=== PATIENT | female | born 1975 | race Hispanic/Latino ===

== ENCOUNTER → 2018-06-16 | Day surgery (SDC) | payer BC ==
[~2018-06-16] MED LIST: FENTANYL CITRATE/PF 100MCG/2 ML INJ ONE; HUMALOG MI100 UNIT/2 SQ; JARDIANCE PO; JUNEL FE PO; LIDOCAINE HCL 2% LOCAL INJ 5 ML SDV VIAL INJ ONE; METFORMIN HCL500 M2 PO; MIDAZOLAM HCL 2 MG/2 ML VIAL ONE; PROPOFOL IV EMULSION 10 MG/ML 50 ML VIAL ONE; SYNTHROID125 MCG PO; TRULICITY SQ
--- OUTSIDE RECORDS SUMMARY | 2018-06-16 08:08 | XMS REPORT | Summary of Care ---
Author Author Julianna Canchola Organization Unknown Address [facility] Phone Unavailable Care Team Providers Care Leather Patcher Name Role Phone SushantArnold booneina Unavailable Unavailable JUN Montenegro, RONNIE Unavailable Unavailable ARZATE N.P., IVONNE Unavailable Unavailable VALENTIN ESPINOZA [facility], KAE CARDENAS Unavailable Unavailable VALENTIN [place], KAE Unavailable Unavailable MADELIN FLAVOR TANK TENDER [facility], GISEL Navarrete Unavailable Unavailable EMANUEL ESPINOZA, LISANDRA BENSON Unavailable Unavailable Unavailable Unavailable Functional Status Name Dates Details Functional status health issues are not documented Status: Name Dates Details Cognitive status health issues are not documented Status: Problems Name Dates Details Nonspecific finding on examination of urine (791.9, R82.90) Status: Active Noncompliance with treatment (V15.81, Z91.19) Status: Active De Quervain's tenosynovitis (727.04, M65.4) Status: Active Pain in both lower extremities (729.5, M79.604) Status: Active Varicose veins of leg with pain, 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, I83.813) Status: Active Bilateral acute otitis media (382.9, H66.93) Status: Active Acute frontal sinusitis, recurrence not specified (461.1, J01.10) Status: Active Bilateral serous otitis media, unspecified chronicity (381.4, H65.93) Status: Active Elevated blood-pressure reading, without diagnosis of hypertension (796.2, R03.0) Status: Active Mixed hyperlipidemia (272.2, E78.2) Status: Active Breast cancer screening (V76.10, Z12.31) Status: Active Well woman exam with routine gynecological exam (V72.31, Z01.419) Status: Active Dyspepsia (536.8, R10.13) Status: Active Type 2 diabetes mellitus (250.00, E11.9) Status: Active Hypothyroidism (244.9, E03.9) Status: Active Fatty liver (571.8, K76.0) Status: Active Seasonal allergic rhinitis due to pollen (477.0, J30.1) Status: Active Other specified hearing loss, left ear (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 Quantity: 90 RONNIE BARAHONA M.D. Active One Touch Ultra Test Strips Check BG 3x a day * Quantity: 100 Refills: 11 RONNIE BARAHONA M.D. * Start : 08-Mar-2014 Active OneTouch Delica Lancets Fine Check BG 3x a day * Quantity: 100 Refills: 4 RONNIE BARAHONA M.D. * Start : 08-Mar-2014 Active Pen [place] 3" 31G X 5 MM 4 a day * Quantity: 200 Refills: 10 RONNIE BARAHONA M.D. * Start : 08-Mar-2014 Active Lantus SoloStar 100 UNIT/ML Subcutaneous Solution Pen-injector 31 units every evening; may self titrate up to 35 units May Use Instead of Pepitoshelly storm) * Quantity: 1 Refills: 0 RONNIE BARAHONA M.D. * Start : 25-Jun-2015 Active 3 ML Pen (5 Pens) HumaLOG KwikPen 100 UNIT/ML Subcutaneous Solution Pen-injector 10 breakfast; 10 lunch; 10 supper; 4 snacks; CF 50; up to 50 units a day * Quantity: 1 Refills: 3 RONNIE BARAHONA M.D. * Start : 25-Jun-2015 Active 3 ML Pen (5 Pens) Trulicity 0.75 MG/0.5ML Subcutaneous Solution Pen-injector INJECT THE CONTENTS OF ONE PEN SUBCUTANEOUSLY WEEKLY (REPLACING GLYXAMBI) * Quantity: 1 Refills: 2 RONNIE BARAHONA M.D. * Start : 27-Oct-2016 Active 4 x 0.5 ML Pen Levocetirizine Dihydrochloride 5 MG Oral Tablet TAKE 1 TABLET DAILY IN THE EVENING. * Quantity: 30 Refills: 3 ARZATE N.P., IVONNE * Start : 17-Jul-2017 Active Montelukast Sodium 10 MG Oral Tablet TAKE 1 TABLET DAILY * Quantity: 30 Refills: 5 ARZATE N.P., IVONNE * Start : 17-Jul-2017 Active Fluticasone Propionate 50 MCG/ACT Nasal Suspension USE 1 SPRAY IN EACH NOSTRIL TWICE DAILY. * Quantity: 1 Refills: 1 ARZATE N.P., IVONNE * Start : 17-Jul-2017 Active 15.8 ML Bottle MetFORMIN HCl ER 500 MG Oral Tablet Extended Release 24 Hour TAKE 2 TABLET AM; 2 TABLETS PM Replacing Synjardy * Quantity: 360 Refills: 1 JUN Montenegro, RONNIE * Start : 08-Mar-2014 Active Jardiance 25 MG Oral Tablet TAKE ONE TABLET BY MOUTH ONCE DAILY IN THE MORNING (REPLACING SYNJARDY) * Quantity: 30 Refills: 2 JUN [place], RONNIE * Start : 19-Dec-2016 Active Allergies and Adverse Reactions Name Dates Details No Known Drug Allergies (Allergy) Status: Active Past Medical History Name Dates Details History of diabetes mellitus (V12.29, Z86.39) Status: Resolved History of essential hypertension (V12.59, Z86.79) Status: Resolved Procedures Procedure Dates Details Procedures not documented Immunization Name Dates Details Tetanus on: 16-Sep-2007 Family History Name Dates Details Family history of Hypertension (V17.49) Status: Active Family history of Diabetes Mellitus (V18.0) Status: Active Family history of Cancer Status: Active Name Dates Details Family history of Diabetes Mellitus (V18.0) Status: Active Social History Name Dates Details - Status: Name Dates Details Never smoker Vital Signs Date Test Result Details [id number] BP Systolic 131 mm[Hg] Status: Comments: Location: E; Position: Sitting BP Diastolic 83 mm[Hg] Status: Comments: [place] [facility] [place] Height 61 in Status: Weight 163.125 lb Status: Body Mass Index Calculated 30.82 kg/m2 Status: Body Surface Area Calculated 1.73 m2 Status: Temperature 98.2 f Status: Comments: Method: Temporal Heart Rate 86 /min Status: Comments: Quality: Normal Respiration Rate 18 /min Status: Comments: Quality: Normal Results Date Description Value Details Results not documented Plan of Care Name Dates Details Planned Observations Planned Goals not documented Instructions Name Dates Details Instructions not documented Encounters Appointment; RONNIE BARAHONA M.D. Encounter Diagnosis: Problem not documented On: 01-Nov-2015 15:15 Appointment; RONNIE BARAHONA M.D. Encounter Diagnosis: Problem not documented On: 21-Feb-2016 9:30 Appointment; GISEL YUSUF NP Encounter Diagnosis: Problem not documented On: 07-Apr-2016 15:00 Appointment; [facility] Encounter Diagnosis: Problem not documented On: 16-Apr-2016 8:00 Appointment; RONNIE BARAHONA M.D. Encounter Diagnosis: Problem not documented On: 30-May-2016 9:30 Appointment; GISEL YUSUF NP Encounter Diagnosis: Problem not documented On: 07-Jul-2016 8:00 Appointment; HETAL MCGREGOR M.D. Encounter Diagnosis: Problem not documented On: 12-Jul-2016 10:15 Appointment; RONNIE BARAHONA M.D. Encounter Diagnosis: Problem not documented On: 08-Sep-2016 9:30 Appointment; KIRSTEN GLEZ M.D. Encounter Diagnosis: Problem not documented On: 29-Apr-2017 15:00 Appointment; IVONNE ARZATE NP Encounter Diagnosis: Problem not documented On: 17-Jul-2017 17:30
[2018-06-16 11:32] VITALS: BP 113/72
--- NOTE | 2018-06-16 18:09 | Operative Report ---
DATE OF PROCEDURE: 06/16/2018 PROCEDURE: Esophagogastroduodenoscopy with biopsies. INDICATION FOR PROCEDURE: Heartburn, indigestion, nausea, and bloating. MEDICATIONS: The patient was on MAC. Please see anesthesiologist's note. PROCEDURE IN DETAIL: With the patient in left lateral decubitus position, a flexible fiberoptic Olympus gastroscope was introduced into the esophagus under direct visualization without any difficulty. There was some diffuse erythema noted in the distal esophagus. The scope was advanced with ease into the stomach and mucosa overlying the antrum and the body revealed diffuse erythema and moderate edema and patchy nodularity. Biopsies were obtained and sent to stain for H pylori. Pylorus was of normal contour and shape, was intubated with ease and the scope was advanced all the way to the second portion of the duodenum. Biopsies were obtained from the proximal and second portion and duodenal bulb to rule out sprue. The scope was then withdrawn back into the stomach and retroflexion of mucosa overlying the fundus and the cardia appeared to be within normal limits. The scope was then straightened out and was subsequently withdrawn. The patient had tolerated the procedure well. IMPRESSION: 1. Distal esophagitis. 2. Gastritis, biopsied. Biopsies sent to stain for Helicobacter pylori. 3. Rule out sprue. PLAN: Follow up pathology. Initiate Protonix 40 mg one p.o. q.a.m. a.c. Tomy Zaragoza [place] [facility] [place][id number] cc: Dyllan Franco
== END | disposition home or self-care (01) ==
LOC: OR 08:06
PROVIDERS: ATTEND Internal Medicine Gastroenterology
DX: K29.50 Unspecified chronic gastritis without bleeding (principal); K20.9 Esophagitis, unspecified; B96.81 Helicobacter pylori [H. pylori] as the cause of diseases classified elsewhere; E11.9 Type 2 diabetes mellitus without complications; E03.9 Hypothyroidism, unspecified; R03.0 Elevated blood-pressure reading, without diagnosis of hypertension; Z01.810 Encounter for preprocedural cardiovascular examination; Z79.4 Long term (current) use of insulin; Z68.30 Body mass index [BMI] 30.0-30.9, adult; Z90.49 Acquired absence of other specified parts of digestive tract
CPT/HCPCS: 36415; 43239; 81025; 82948; 93005; J2001; J2250; J2704

== ENCOUNTER → 2021-10-11 | Outpatient (CLI) | payer BC, SELFPAY ==
[~2021-10-11] MED LIST changes: -FENTANYL CITRATE/PF 100MCG/2 ML INJ ONE; -LIDOCAINE HCL 2% LOCAL INJ 5 ML SDV VIAL INJ ONE; -MIDAZOLAM HCL 2 MG/2 ML VIAL ONE; -PROPOFOL IV EMULSION 10 MG/ML 50 ML VIAL ONE
== END ==
LOC: US 14:05
PROVIDERS: ATTEND Internal Medicine Gastroenterology
DX: R74.8 Abnormal levels of other serum enzymes (principal)
CPT/HCPCS: 76705

== ENCOUNTER → 2021-10-22 | Outpatient (CLI) | payer BC ==
[~2021-10-22] MED LIST changes: +IOPAMIDOL 370 MG/ML 100 ML INFUS..BTL INJ ONE
[2021-10-22 08:28] LABS: CREATININE, SERUM 0.72 mg/dL (0.57-1.11)
== END ==
LOC: CT 07:37
PROVIDERS: ATTEND Internal Medicine Gastroenterology
DX: R10.31 Right lower quadrant pain (principal); R19.09 Other intra-abdominal and pelvic swelling, mass and lump; R11.0 Nausea
CPT/HCPCS: 36415; 74177; 81025; 82565; 84520; Q9967